=== PATIENT | male | born 1965 | race Two or more races ===

== ENCOUNTER → 2021-10-19 | Outpatient (CLI) | payer OTHER | END | disposition home or self-care (01) | LOC: SONOGRAMA 13:58 | PROVIDERS: ATTEND Specialist | DX: M75.101 Unspecified rotator cuff tear or rupture of right shoulder, not specified as traumatic (principal) ==

== ENCOUNTER 2023-01-03 22:26 | Emergency (ER) | payer OTHER ==
[~2023-01-03] VITALS: Ht 180.3 cm; Wt 83.9 kg
[2023-01-03] MEDS ORDERED: COZAAR100 MG PO (23:36)
[2023-01-03] MEDS ORDERED: NORVASC5 MG PO (23:36)
== END 2023-01-03 23:52 | disposition home or self-care (01) ==
LOC: ER 22:26
DX: J45.909 Unspecified asthma, uncomplicated (principal); R53.81 Other malaise; Z88.1 Allergy status to other antibiotic agents

== ENCOUNTER → 2023-03-24 | Emergency (ER) | payer OTHER ==
[~2023-03-24] VITALS: Ht 180.3 cm; Wt 83.5 kg
[~2023-03-24] MED LIST: COZAAR100 MG PO; NORVASC5 MG PO
== END | disposition left against medical advice (07) ==
LOC: ER 02:30
DX: Z53.21 Procedure and treatment not carried out due to patient leaving prior to being seen by health care provider (principal)

== ENCOUNTER 2023-07-04 23:15 | Emergency (ER) | payer OTHER ==
[~2023-07-04] VITALS: Ht 180.3 cm; Wt 83.0 kg
[2023-07-05] MEDS ORDERED: CEPHALEXIN500 MG PO (02:39)
[2023-07-05] MEDS ORDERED: CENTANY30 GM TOP (02:39)
== END 2023-07-05 02:57 | disposition home or self-care (01) ==
LOC: ER 23:15
DX: L03.115 Cellulitis of right lower limb (principal); Z88.8 Allergy status to other drugs, medicaments and biological substances; I10 Essential (primary) hypertension

== ENCOUNTER 2024-04-14 21:27 | Emergency (ER) | payer OTHER ==
[~2024-04-14] VITALS: Ht 177.8 cm; Wt 83.0 kg
[~2024-04-14 21:27] MED LIST changes: +CENTANY30 GM TOP; +CEPHALEXIN500 MG PO; +KETO10TA2 PO; +VALTREX1000 MG PO; +ZOVIRAX30 GM TOP
[2024-04-14 23:57] LABS: HEMATOCRIT 37.4 % (39.0-48.0); HEMOGLOBIN 12.9 g/dL (13-16.00); MEAN CELL VOLUME 91.9 fL (80.0-100.00); MEAN CORPUSCULAR HEMOGLOBIN 31.7 pg (27.00-32.0); MEAN CORPUSCULAR HGB CONC 34.5 g/dl (32.0-36.0); PLATELET COUNT 380 K/uL (150-450); RED BLOOD COUNT 4.07 M/uL (4.00-6.00); RED CELL DISTRIBUTION WIDTH 12.9 % (11.5-14.5)
== END 2024-04-15 00:47 | disposition home or self-care (01) ==
LOC: ER 21:28
PROVIDERS: General Practice
DX: R53.81 Other malaise (principal); R00.2 Palpitations; I10 Essential (primary) hypertension; Z88.1 Allergy status to other antibiotic agents